=== PATIENT | female | born 1960 | race African-American/Black ===

== ENCOUNTER 2017-04-25 08:56 | Emergency (ER) | payer SELFPAY ==
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
[~2017-04-25 08:56] MED LIST: IBUPROFEN800 MG PO; TRAMADOL HCL50 M1 PO
[2017-04-25] MEDS ORDERED: MULTI VITAMIN1 EACH PO (09:15)
[2017-04-25] MEDS ORDERED: ZYRTEC-D TABLE1 EACH PO (09:15)
[2017-04-25] MEDS ORDERED: FLONASE 0.05% N16 G1 (09:15)
[2017-04-25] MEDS ORDERED: KEFLEX500 M1 PO (12:10)
[2017-04-25] MEDS ORDERED: HYDROCODON-ACE1 EAC9 PO (12:11)
[2017-04-25] MEDS ORDERED: BACLOFEN10 MG PO (12:11)
== END 2017-04-25 12:14 | disposition home or self-care (01) ==
LOC: SED 08:56
DX: S63.502A Unspecified sprain of left wrist, initial encounter (principal); S00.83XA Contusion of other part of head, initial encounter; S40.021A Contusion of right upper arm, initial encounter; F17.210 Nicotine dependence, cigarettes, uncomplicated; V49.00XA Driver injured in collision with unspecified motor vehicles in nontraffic accident, initial encounter; Y92.410 Unspecified street and highway as the place of occurrence of the external cause
CPT/HCPCS: 29125; 70486; 72125; 73060; 73090; 73110; 99284